=== PATIENT | male | born 1960 | race Caucasian/White ===

== ENCOUNTER 2025-01-19 13:18 | Outpatient (CLI) | payer OTHER, SELFPAY ==
[2025-01-21 10:25] LABS: Thyroid Peroxidase (TPO) Ab <0.3 IU/mL (0.0-9.0)
== END 2025-01-19 13:19 | disposition home or self-care (01) ==
LOC: NPINS 13:20
PROVIDERS: Visit Provider Family Medicine
DX: R79.89 Other specified abnormal findings of blood chemistry (principal)
CPT/HCPCS: 84439; 84443; 86376

== ENCOUNTER 2025-08-03 12:39 | Outpatient (CLI) | payer OTHER, SELFPAY ==
--- NOTE | 2025-08-03 13:00 | CRLHL7_ITS ---
For Patients: As a result of the 21st Century Cures Act, medical imaging exams and procedure reports are released immediately into your electronic medical record. You may view this report before your referring provider. If you have questions, please contact your health care provider. EXAM: MRI OF THE LEFT SHOULDER, WITHOUT CONTRAST INDICATION: Limited range of motion left shoulder. COMPARISON: None. TECHNIQUE: Axial, sagittal oblique and coronal oblique T1, PD, PD FS and T2-weighted images. 1.5 [employer] MR scanner. FINDINGS: Motion degraded exam. ROTATOR CUFF TENDONS AND MUSCLES AND DELTOID: Supraspinatus: Complete retracted tear. Severe fatty atrophy of the muscle. Infraspinatus: Complete retracted tear. Severe fatty atrophy of the muscle. Teres Minor: Intact. Mild muscle fatty atrophy. Subscapularis: Attenuated near the insertion, likely partial tear. No significant muscle edema or atrophy. Other: At least moderate fatty atrophy of the anterior head of deltoid muscle. No other suspicious muscle signal abnormality. BICEPS TENDON, LONG HEAD: Complete tear with distally retracted stump along the proximal humerus. GLENOHUMERAL JOINT: Effusion/Cyst: Small joint effusion. Humeral Head Articular Cartilage: Not well evaluated due to motion. Glenoid Articular Cartilage: Not well evaluated due to motion. Loose Bodies: None. Labrum and capsule: Degeneration and tearing throughout the superior and posterior labrum. OSSEOUS STRUCTURES: No acute fracture or pathologic marrow replacement within limits of motion. Large inferior glenohumeral marginal osteophytes. CORACOACROMIAL ARCH: Acromial Morphology: Type 1 acromial morphology. Acromiohumeral Interval: Markedly narrowed, related to full-thickness rotator cuff tear. Coracohumeral Interval: Narrowed. ACROMIOCLAVICULAR JOINT REGION: AC Joint: [id number] hypertrophic degenerative changes none prominent osteophytes. Ligaments: The coracoclavicular ligaments are intact. BURSAE: Subacromial-Subdeltoid: Moderate distention, likely related to full-thickness rotator cuff tears. Subcoracoid: No significant distention or thickening. OTHER FINDINGS: No space-occupying lesion or abnormality within the suprascapular or spinoglenoid notches or within the quadrilateral space; within limits of motion artifact. No enlarged axillary lymph nodes by size criteria. IMPRESSION: Motion degraded exam. Chronic massive rotator cuff tear as described. Complete retracted tear long head biceps tendon. 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 Dictated by Jerome Keller MD @ 08/06/2025 8:29:33 AM (Electronically Signed)
== END 2025-08-03 12:40 | disposition home or self-care (01) ==
PROVIDERS: Visit Provider Family Medicine
DX: M25.512 Pain in left shoulder (principal); S46.212A Strain of muscle, fascia and tendon of other parts of biceps, left arm, initial encounter; M19.012 Primary osteoarthritis, left shoulder; M25.612 Stiffness of left shoulder, not elsewhere classified
CPT/HCPCS: 73221